=== PATIENT | female | born 1990 | race Caucasian/White ===

== ENCOUNTER 2017-09-06 09:16 | Emergency (ER) | END 2017-09-06 15:04 | disposition home or self-care (01) ==

== ENCOUNTER 2019-03-14 15:48 | Emergency (ER) | payer OTHER ==
[~2019-03-14] VITALS: Ht 160 cm; Wt 91.6 kg
[~2019-03-14 15:48] MED LIST: CIPR500T4 PO; HYDR-4011 PO; NAPR-985 PO; PRENATAL VITAMINS
[2019-03-14 15:51] VITALS: Ht 160 cm; Wt 91.6 kg
[2019-03-14] MEDS ORDERED: ONDANSETRON 4 MG INJ IV STA (17:47)
[2019-03-14] MEDS ORDERED: morphine 4 MG/ML VIAL IV STA ×2 (17:47→20:45)
[2019-03-14] MEDS ORDERED: KETOROLAC 30 MG INJ IV STA (19:10)
[2019-03-14] MEDS ORDERED: CEFTRIAXONE 1 GM/50 ML (PMX) 50 ML IVPB ONE (21:00)
[2019-03-14] MEDS ORDERED: HYDR-3980 PO (21:20)
--- NOTE | 2019-03-14 21:23 | ERD ---
ER Documentation Chief Complaint Chief Complaint vag bleed x 4 days with pelvic pain , lt oophorectomy x 4 days ago HPI 28-year-old female presents with pelvic pain. She had a oophorectomy on the left 4 days ago for a cyst and endometriosis by history. She denies fevers, vomiting. She has pain in her right lower abdomen rating to her right mid abdomen. She is having vaginal bleeding since her surgery has well. She is taking unspecified hormonal treatment for the bleeding. She is taking Cipro and Flagyl for unspecified infection as well. She has an appointment on Sunday with her surgeon. ROS All systems reviewed and are negative except as per history of present illness. Medications Home Meds Active Scripts Hydrocodone/Acetaminophen (Cranston 10-325 Tablet) 1 Each Tablet, 1 TAB PO Q6H PRN for PAIN, #7 TAB Prov:LEXY WALTERS MD 03/14/19 Naproxen* (Naprosyn*) 500 Mg Tablet, 500 MG PO BID PRN for PAIN AND/OR INFLAMMATION, #30 TAB Prov:SOFIA LUGO PA-C 09/06/17 Hydrocodone/Acetaminophen (Cranston 5-325 Tablet) 1 Each Tablet, 1 TAB PO Q6H PRN for PAIN, #7 TAB Prov:SOFIA LUGO PA-C 09/06/17 Ciprofloxacin Hcl* (Ciprofloxacin Hcl*) 500 Mg Tablet, 500 MG PO BID for 7 Days, TAB Prov:SOFIA LUGO PA-C 09/06/17 Reported Medications [ Vitamins] No Conflict Check 10/31/09 Allergies Allergies: Coded Allergies: No Known Drug Allergies (Verified Allergy, Mild, 10/31/09) PMhx/Soc History of Surgery: No Anesthesia Reaction: No Hx Neurological Disorder: No Hx Respiratory Disorders: No Hx Cardiac Disorders: No Hx Psychiatric Problems: No Hx Miscellaneous Medical Probl: Yes (RENAL INFECTION, OVARIAN CYST) Hx Alcohol Use: No Hx Substance Use: No Hx Tobacco Use: No Smoking Status: Never smoker FmHx Family History: No diabetes, No coronary disease, No other Physical Exam Vitals Vital Signs Date Temp Pulse Resp B/P (MAP) Pulse Ox O2 O2 Flow FiO2 Time Delivery Rate 03/14/19 97.8 84 20 114/63 98 Room Air 21:42 (80) 03/14/19 98.4 85 18 127/85 97 Room Air 21:00 (99) 03/14/19 98.1 99 18 150/93 98 15:51 (112) Physical Exam Const: No acute distress. Morbidly obese. Head: Atraumatic Eyes: Normal Conjunctiva ENT: Normal External Ears, Nose and Mouth. Neck: Full range of motion. No meningismus. Resp: Clear to auscultation bilaterally Cardio: Regular rate and rhythm, no murmurs Abd: Soft, mild generalized tenderness in the right lower abdomen and lower abdomen generally without rebound without exquisite tenderness at McBurney's point no CVA tenderness., non distended. Normal bowel sounds Skin: No petechiae or rashes Back: No midline or flank tenderness Ext: No cyanosis, or edema Neur: Awake and alert Psych: Normal Mood and Affect Result Diagram: 03/14/19175703/14/191757 Results 24 hrs Laboratory Tests Test 03/14/19 17:58 White Blood Count 10.7 10^3/ul Red Blood Count 4.57 10^6/ul Hemoglobin 12.5 g/dl Hematocrit 37.9 % Mean Corpuscular Volume 82.9 fl Mean Corpuscular Hemoglobin 27.4 pg Mean Corpuscular Hemoglobin Concent 33.0 g/dl Red Cell Distribution Width 13.3 % Platelet Count 338 10^3/UL Mean Platelet Volume 9.7 fl Immature Granulocytes % 0.300 % Neutrophils % 47.0 % Lymphocytes % 43.4 % Monocytes % 4.8 % Eosinophils % 3.9 % Basophils % 0.6 % Nucleated Red Blood Cells % 0.0 /100WBC Immature Granulocytes # 0.030 10^3/ul Neutrophils # 5.0 10^3/ul Lymphocytes # 4.6 10^3/ul Monocytes # 0.5 10^3/ul Eosinophils # 0.4 10^3/ul Basophils # 0.1 10^3/ul Nucleated Red Blood Cells # 0.0 10^3/ul Urine Color YELLOW Urine Clarity SLIGHTLY CLOUDY Urine pH 6.0 Urine Specific [place] 1.020 Urine Ketones NEGATIVE mg/dL Urine Nitrite NEGATIVE mg/dL Urine Bilirubin NEGATIVE mg/dL Urine Urobilinogen NEGATIVE mg/dL Urine Leukocyte Esterase 1+ Katelyn/ul Urine Microscopic RBC > 182 /HPF Urine Microscopic WBC 14 /HPF Urine Squamous Epithelial Cells FEW /HPF Urine Mucus FEW /HPF Urine Hemoglobin 3+ mg/dL Urine Glucose NEGATIVE mg/dL Urine Total Protein NEGATIVE mg/dl Urine Test NEGATIVE Sodium Level 142 mmol/L Potassium Level 4.1 mmol/L Chloride Level 107 mmol/L Carbon Dioxide Level 23 mmol/L Anion Gap 12 Blood Urea Nitrogen 5 mg/dl Creatinine 0.54 mg/dl Est Glomerular Filtrat Rate mL/min > 60 mL/min Glucose Level 87 mg/dl Calcium Level 9.0 mg/dl Total Bilirubin 0.2 mg/dl Direct Bilirubin 0.00 mg/dl Indirect Bilirubin 0.2 mg/dl Aspartate Amino Transf (AST/SGOT) 17 IU/L Alanine Aminotransferase (ALT/SGPT) 22 IU/L Alkaline Phosphatase 59 IU/L Total Protein 7.7 g/dl Albumin 4.3 g/dl Globulin 3.40 g/dl Albumin/Globulin Ratio 1.26 Current Medications Medications Dose Sig/Henrry Start Time Status Last (Trade) Ordered Route PRN Stop Time Admin Dose Reason Admin Morphine 4 mg ONCE STAT 03/14/19 DC 03/14/19 Sulfate IV 17:47 03/14/19 18:12 (morphine) 17:50 Ondansetron 4 mg ONCE STAT 03/14/19 DC 03/14/19 HCl (Zofran IV 17:47 03/14/19 18:12 Inj) 17:50 Ketorolac 30 mg ONCE STAT 03/14/19 DC 03/14/19 Tromethamine IV 19:10 03/14/19 19:14 (Toradol) 19:11 Ceftriaxone 50 ml @ ONCE ONCE 03/14/19 DC 03/14/19 Sodium 100 mls/hr IVPB 21:00 03/14/19 20:58 21:29 Morphine 4 mg ONCE STAT 03/14/19 DC 03/14/19 Sulfate IV 20:45 03/14/19 20:58 (morphine) 20:46 Procedures/MDM Patient presents with postoperative pain of uncertain etiology. IV was obtained. CBC normal. Urine shows leukocyte esterase and white blood cells. Urine sent for culture. She was given Rocephin 1 g IV, morphine 4 mg x 2 as well as Toradol for pain during her ED course. CT abdomen pelvis with IV contrast shows no evidence of abscess. There is findings consistent with post operative changes without acute findings. Patient felt better after observation treatment and is wishing to leave. Patient will be treated for UTI with continuation of her Cipro and Flagyl. Will give a short course of Cranston for p ostoperative pain. She is to return for fevers, vomiting, worsening pain, new worsening symptoms. Current signs or symptoms do not suggest appendicitis, sepsis, obstruction. The patient was stable with no new complaints during the ER course. Clinically, there is no current evidence to suggest meningitis, sepsis, acute abdomen, pneumonia, stroke, acute coronary syndrome, pulmonary embolism, aortic dissection or any other emergent condition appearing to require further evaluation or hospitalization. Patient counseled regarding my diagnostic impression and care plan. Prior to discharge all questions answered. Pt agrees with treatment plan and understands strict return precautions. Pt is instructed to follow up with primary care provider within 24-48 hours. Precautionary instructions provided including instructions to return to the ER if not improving or for any worsening or changing symptoms or concerns. Cures review shows several prescriptions but none within the last month. They are for less than 5-day supplies without appreciable overlapping prescriptions. Some with her surgeon and primary doctor. Disclaimer: Inadvertent spelling and grammatical errors are likely due to [employer]/dictation software use and do not reflect on the overall quality of patient care. Also, please note that the electronic time recorded on this note does not necessarily reflect the actual time of the patient encounter. Departure Diagnosis: Primary Impression: Post-op pain Additional Impressions: Vaginal bleeding UTI (urinary tract infection) Urinary tract infection type: acute cystitis Hematuria presence: without hematuria Qualified Codes: N30.00 - Acute cystitis without hematuria Condition: Stable Patient Instructions: Understanding Urinary Tract Infections (UTIs), Post Op Wound Check, Pain Additional Instructions: CT shows no acute abnormalities. Urine sent for culture. Continue current medications and see a surgeon as scheduled. Recheck for fevers, vomiting, new or worsening symptoms. LEXY WALTERS MD Mar 14, 2019 21:23
[2019-03-14 21:42] VITALS: BP 114/63; PULSE 84; RESP 20
== END 2019-03-14 21:44 | disposition home or self-care (01) ==
LOC: FTE 15:48
DX: N93.9 Abnormal uterine and vaginal bleeding, unspecified (principal); N30.00 Acute cystitis without hematuria; G89.18 Other acute postprocedural pain; R10.2 Pelvic and perineal pain
CPT/HCPCS: 36415; 74177; 80053; 81001; 84703; 85025; 87086; 96374; 96375; 96376; J0696; J1885; J2270; J2405; Z7502

== ENCOUNTER 2019-04-05 17:58 | Emergency (ER) | payer OTHER ==
[~2019-04-05] VITALS: Ht 160 cm; Wt 89.9 kg
[~2019-04-05 17:58] MED LIST changes: +HYDR-3980 PO; +IBUP-1542 PO
[2019-04-05 18:00] VITALS: Ht 160 cm; Wt 89.9 kg
[2019-04-05] MEDS ORDERED: SOD CHLORIDE 0.9% 1,000 ML IV STA (18:21)
[2019-04-05] MEDS ORDERED: ACETAMINOPHEN 325 MG TAB PO STA (18:21)
[2019-04-05] MEDS ORDERED: KETOROLAC 15 MG INJ IV STA (18:21)
[2019-04-05] MEDS ORDERED: morphine 2 MG INJ IV STA ×2 (19:22→20:10)
[2019-04-05] MEDS ORDERED: ONDANSETRON 4 MG INJ IV STA (19:22)
[2019-04-05 20:18] VITALS: BP 127/72; PULSE 79; RESP 17
[2019-04-05] MEDS ORDERED: CEFTRIAXONE 1 GM INJ IVPB ONE (20:30)
--- NOTE | 2019-04-06 04:30 | ERD ---
ER Documentation Chief Complaint Chief Complaint dysuria x 3 days sent by gloria DUMONT This is a 28-year-old female with history of pyelonephritis presents to the ED complaining of dysuria x1 week. She states she started to develop right lower quadrant pain radiating to her right flank yesterday. She also reports subjective fevers at home along with nausea vomiting. She saw her primary care doctor to clinic who referred here here to rule out Vasiliy versus appendicitis. She states she has a history of plantar fasciitis and today's symptoms are very similar. Denies any lack of appetite. Denies any chest pain or shortness of breath. No vaginal discharge. ROS All systems reviewed and are negative except as per history of present illness. Medications Home Meds Active Scripts Hydrocodone/Acetaminophen (Castile 5-325 Tablet) 1 Each Tablet, 1 TAB PO Q6H PRN for PAIN, #7 TAB Prov:FAMILIAIGRELOISEANINGE-C 04/05/19 Ibuprofen* (Motrin*) 600 Mg Tab, 600 MG PO Q6H PRN for PAIN AND OR ELEVATED TEMP, #30 TAB Prov:FAMILIAIGREOLISEANINGE-C 04/05/19 Ciprofloxacin Hcl* (Ciprofloxacin Hcl*) 500 Mg Tablet, 500 MG PO BID for 7 Days, TAB Prov:FAMILIAIGRINGE HICKMAN-C 04/05/19 Hydrocodone/Acetaminophen (Castile 10-325 Tablet) 1 Each Tablet, 1 TAB PO Q6H PRN for PAIN, #7 TAB Prov:LEXY WALTERS MD 03/14/19 Naproxen* (Naprosyn*) 500 Mg Tablet, 500 MG PO BID PRN for PAIN AND/OR INFLAMMATION, #30 TAB Prov:SOFIA LUGO PA-C 09/06/17 Hydrocodone/Acetaminophen (Castile 5-325 Tablet) 1 Each Tablet, 1 TAB PO Q6H PRN for PAIN, #7 TAB Prov:SOFIA LUGO PA-C 09/06/17 Ciprofloxacin Hcl* (Ciprofloxacin Hcl*) 500 Mg Tablet, 500 MG PO BID for 7 Days, TAB Prov:SOFIA LUGO PA-C 09/06/17 Reported Medications [ Vitamins] No Conflict Check 10/31/09 Allergies Allergies: Coded Allergies: No Known Drug Allergies (Verified Allergy, Mild, 10/31/09) PMhx/Soc History of Surgery: No Anesthesia Reaction: No Hx Neurological Disorder: No Hx Respiratory Disorders: No Hx Cardiac Disorders: No Hx Psychiatric Problems: No Hx Miscellaneous Medical Probl: Yes (RENAL INFECTION, OVARIAN CYST) Hx Alcohol Use: No Hx Substance Use: No Hx Tobacco Use: No Smoking Status: Never smoker Physical Exam Vitals Vital Signs Date Temp Pulse Resp B/P (MAP) Pulse Ox O2 O2 Flow FiO2 Time Delivery Rate 04/05/19 98.4 79 17 127/72 97 Room Air 20:18 (90) 04/05/19 99.3 93 18 156/77 97 18:00 (103) Physical Exam Const: + Appears uncomfortable secondary to pain. Head: Atraumatic Eyes: Normal Conjunctiva ENT: Normal External Ears, Nose and Mouth. Neck: Full range of motion. No meningismus. Resp: Clear to auscultation bilaterally Cardio: Regular rate and rhythm, no murmurs Abd: Soft, + right pelvic tenderness palpation, negative McBurney's, negative Nur's, no rebound, no guarding, non distended. Normal bowel sounds Skin: No petechiae or rashes Back: + Right CVA tenderness palpation. Ext: No cyanosis, or edema Neur: Awake and alert Psych: Normal Mood and Affect Result Diagram: 04/05/19183904/05/191839 Results 24 hrs Laboratory Tests Test 04/05/19 18:40 04/05/19 18:41 White Blood Count 8.7 10^3/ul Red Blood Count 3.98 10^6/ul Hemoglobin 11.2 g/dl Hematocrit 33.6 % Mean Corpuscular Volume 84.4 fl Mean Corpuscular Hemoglobin 28.1 pg Mean Corpuscular Hemoglobin Concent 33.3 g/dl Red Cell Distribution Width 13.3 % Platelet Count 279 10^3/UL Mean Platelet Volume 9.9 fl Immature Granulocytes % 0.200 % Neutrophils % 54.6 % Lymphocytes % 37.1 % Monocytes % 5.0 % Eosinophils % 2.5 % Basophils % 0.6 % Nucleated Red Blood Cells % 0.0 /100WBC Immature Granulocytes # 0.020 10^3/ul Neutrophils # 4.8 10^3/ul Lymphocytes # 3.2 10^3/ul Monocytes # 0.4 10^3/ul Eosinophils # 0.2 10^3/ul Basophils # 0.1 10^3/ul Nucleated Red Blood Cells # 0.0 10^3/ul Urine Color RANI Urine Clarity CLOUDY Urine pH 5.0 Urine Specific [place] 1.036 Urine Ketones TRACE mg/dL Urine Nitrite NEGATIVE mg/dL Urine Bilirubin 1+ mg/dL Urine Urobilinogen 1+ mg/dL Urine Leukocyte Esterase TRACE Katelyn/ul Urine Microscopic RBC 6 /HPF Urine Microscopic WBC 32 /HPF Urine Squamous Epithelial Cells MANY /HPF Urine Bacteria FEW /HPF Urine Mucus MANY /HPF Urine Hemoglobin NEGATIVE mg/dL Urine Glucose NEGATIVE mg/dL Urine Total Protein 2+ mg/dl Sodium Level 140 mmol/L Potassium Level 3.7 mmol/L Chloride Level 108 mmol/L Carbon Dioxide Level 24 mmol/L Anion Gap 8 Blood Urea Nitrogen 7 mg/dl Creatinine 0.71 mg/dl Est Glomerular Filtrat Rate mL/min > 60 mL/min Glucose Level 99 mg/dl Calcium Level 9.6 mg/dl Serum HCG, Qualitative NEGATIVE Beta HCG, Quantitative < 2.4 mIU/ml POC Beta HCG, Qualitative NEGATIVE Current Medications Medications Dose Sig/Henrry Start Time Status Last (Trade) Ordered Route PRN Stop Time Admin Dose Reason Admin Sodium 1,000 ml @ Q1H STAT 04/05/19 DC 04/05/19 Chloride 1,000 mls/hr IV 18:21 18:50 04/05/19 19:20 650 mg ONCE STAT 04/05/19 DC 04/05/19 Acetaminophen PO 18:21 18:55 (Tylenol 04/05/19 18:24 Tab) Ketorolac 15 mg ONCE STAT 04/05/19 DC 04/05/19 Tromethamine IV 18:21 18:56 (Toradol) 04/05/19 18:24 Morphine 2 mg ONCE STAT 04/05/19 DC 04/05/19 Sulfate IV 19:22 19:28 (morphine) 04/05/19 19:23 Ondansetron 4 mg ONCE STAT 04/05/19 DC 04/05/19 HCl (Zofran IV 19:22 19:27 Inj) 04/05/19 19:23 Ceftriaxone 1 gm ONCE ONCE 04/05/19 DC 04/05/19 Sodium IVPB 20:30 20:11 (Rocephin) 04/05/19 20:31 Morphine 2 mg ONCE STAT 04/05/19 DC 04/05/19 Sulfate IV 20:10 20:13 (morphine) 04/05/19 20:11 Procedures/MDM LABS & DIAGNOSTIC IMAGING: CBC: + ALT anemia with H&H of 11 and 33 BMP: no e/o severe acidosis, alkalosis, renal failure, diabetic ketoacidosis Urine: + Leuk esterase with hematuria and pyuria hcg: neg ED COURSE: The patient was given IV fluids, Zofran, Toradol, morphine, 1 g Rocephin The medication was well tolerated and the patient had market improvement in symptoms. The patient remained stable throughout ED course. MEDICAL DECISION MAKIN-year-old female with history of pyelonephritis presents with urinary symptoms and flank pain. She was referred here by PCP for rule out pyelonephritis versus appendicitis. Patient has a low risk appendicitis score, therefore doubt appendicitis. I offered CT of the abdomen however patient deferred. Work-up and clinical picture is most consistent with pyelonephritis. she was given 1 g of Rocephin here and discharged home with outpatient antibiotics. She has mild anemia on labs however no evidence of acute bleed, severe dehydration, sepsis. She is stable for outpatient follow-up and management. Strict return precautions were discussed. PRESCRIPTIONS: Castile, Cipro, ibuprofen SPECIALIST FOLLOW UP RECOMMENDED: None Patient has been advised to follow up with primary care in 1-2 days. Departure Diagnosis: Primary Impression: Pyelonephritis Condition: Stable Patient Instructions: Pyelonephritis Referrals: COMMUNITY CLINICS YOU HAVE RECEIVED A MEDICAL SCREENING EXAM AND THE RESULTS INDICATE THAT YOU DO NOT HAVE A CONDITION THAT REQUIRES URGENT TREATMENT IN THE EMERGENCY DEPARTMENT. FURTHER EVALUATION AND TREATMENT OF YOUR CONDITION CAN WAIT UNTIL YOU ARE SEEN IN YOUR DOCTORS OFFICE WITHIN THE NEXT 1-2 DAYS. IT IS YOUR RESPONSIBILITY TO MAKE AN APPOINTMENT FOR FOLOW-UP CARE. IF YOU HAVE A PRIMARY DOCTOR --you should call your primary doctor and schedule an appointment IF YOU DO NOT HAVE A PRIMARY DOCTOR YOU CAN CALL OUR PHYSICIAN REFERRAL HOTLINE AT IF YOU CAN NOT AFFORD TO SEE A PHYSICIAN YOU CAN CHOSE FROM THE FOLLOWING COMMUNITY CLINICS [facility] [address] [facility]. [facility] [address] [facility]. [facility] [address] [facility] [address] [address] [facility]. [facility] [address] [facility]. [facility] YOU HAVE RECEIVED A MEDICAL SCREENING EXAM AND THE RESULTS INDICATE THAT YOU DO NOT HAVE A CONDITION THAT REQUIRES URGENT TREATMENT IN THE EMERGENCY DEPARTMENT. FURTHER EVALUATION AND TREATMENT OF YOUR CONDITION CAN WAIT UNTIL YOU ARE SEEN IN YOUR DOCTORS OFFICE WITHIN THE NEXT 1-2 DAYS. IT IS YOUR RESPONSIBILITY TO MAKE AN APPOINTMENT FOR FOLOW-UP CARE. IF YOU HAVE A PRIMARY DOCTOR --you should call your primary doctor and schedule and appointment IF YOU DO NOT HAVE A PRIMARY DOCTOR YOU CAN CALL OUR PHYSICIAN REFERRAL HOTLINE AT . IF YOU CAN NOT AFFORD TO SEE A PHYSICIAN YOU CAN CHOSE FROM THE FOLLOWING [facility]: [facility] [address] [place] [address] [facility] [address] [place] [address] [facility] [address] [place] [address] Additional Instructions: Call your primary care doctor TOMORROW for an appointment during the next 2-4 days and bring all the information and medications prescribed. You may need to be started on iron for your mild anemia. You must finish the entire course of antibiotics. If the symptoms get worse and your provider is unavailable, return to the Emergency Department immediately. INGE FIGUEREDO PA-C Apr 06, 2019 04:30
== END 2019-04-05 20:34 | disposition home or self-care (01) ==
LOC: FTE 17:58
DX: N12 Tubulo-interstitial nephritis, not specified as acute or chronic (principal)
CPT/HCPCS: 36415; 76830; 76856; 80048; 81001; 81025; 84702; 84703; 85025; 87086; 96361; 96374; 96375; 96376; J0696; J1885; J2270; J2405; J7030; Z7502; Z7610

== ENCOUNTER 2019-05-27 08:08 | Emergency (ER) | payer OTHER ==
[~2019-05-27] VITALS: Wt 85.2 kg
[~2019-05-27 08:08] MED LIST changes: +ONDA4TAB8 PO; +TRAM50TA2 PO
[2019-05-27] MEDS ORDERED: SOD CHLORIDE 0.9% 1,000 ML IV STA (08:46)
[2019-05-27] MEDS ORDERED: KETOROLAC 30 MG INJ IV STA (08:46)
[2019-05-27] MEDS ORDERED: ONDANSETRON 4 MG INJ IV STA (08:46)
[2019-05-27] MEDS ORDERED: SOD CHLORIDE 0.9% 100 ML ONE (09:16)
[2019-05-27] MEDS ORDERED: IOHEXOL 300MG/ML 150 ML BTL ONE (09:16)
[2019-05-27] MEDS ORDERED: IODIXANOL LOCM 100 ML BTL ONE (09:16)
[2019-05-27] MEDS ORDERED: morphine 4 MG/ML VIAL IV STA (09:34)
[2019-05-27 09:52] VITALS: BP 143/82; PULSE 84; RESP 17
== END 2019-05-27 09:53 | disposition home or self-care (01) ==
LOC: FTE 08:08
DX: N39.0 Urinary tract infection, site not specified (principal)
CPT/HCPCS: 36415; 74177; 80053; 81001; 81025; 83690; 85025; 96361; 96374; 96375; J1885; J2270; J2405; J7030; Q9967; Z7502; Z7610